=== PATIENT | female | born 1975 | race Caucasian/White ===

== ENCOUNTER 2019-10-10 19:28 | Emergency (ER) | payer OTHER ==
[~2019-10-10] VITALS: Ht 165.1 cm; Wt 56.7 kg
[2019-10-10] MEDS ORDERED: KETOROLAC TROMETHAMINE INJ 30 MG/ML VIAL IV ONE (20:00)
[2019-10-10] MEDS ORDERED: IV NS 0.9% 1,000 ML BAG IV ONE (20:00)
[2019-10-10] MEDS ORDERED: ACETAMINOPHEN ES 500 MG TABLET PO ONE (20:00)
[2019-10-10] MEDS ORDERED: ACETAMINOPHEN ES 500 MG TABLET ONE (20:06)
[2019-10-10] MEDS ORDERED: KETOROLAC TROMETHAMINE 15 MG/ML VIAL ONE (20:06)
--- NOTE | 2019-10-10 20:08 | NUR ---
XRAY AT BEDSIDE
--- NOTE | 2019-10-10 20:11 | NUR ---
URINE COLLECTED AND SENT TO LAB
--- NOTE | 2019-10-10 20:12 | NUR ---
PATIENT CAME TO ER BED 9 C/O LOWER BACK PAIN SINCE THIS MORNING. PATIENT STATES THAT SHE HAS FREQUENT URINATION THROUGHOUT THE DAY. AAOX4. BREATHING EVENLY AND UNLABORED ON ROOM AIR. CONNECTED TO MONITOR.
[2019-10-10 20:18] LABS: BASOPHILS # (AUTO) 0.1 /CMM (0.0-0.2); BASOPHILS % (AUTO) 1.1 % (0.0-2.0); EOSINOPHILS % (AUTO) 1.8 % (0.0-6.0); HEMATOCRIT 36 % (33-45); HEMOGLOBIN 12.3 g/dL (11.5-14.8); LYMPHOCYTES # (AUTO) 2.1 /CMM (0.8-4.8); LYMPHOCYTES % (AUTO) 30.5 % (20.0-44.0); MEAN CORPUSCULAR HGB CONC 34 g/dl (31.0-36.0); MEAN CORPUSCULAR VOLUME 93 fL (82-100); MONOCYTES # (AUTO) 0.4 /CMM (0.1-1.30); MONOCYTES % (AUTO) 6.4 % (2.0-12.0); NEUTROPHILS # (AUTO) 4.2 /CMM (1.8-8.9); NEUTROPHILS % (AUTO) 60.2 % (43.0-81.0); PLATELET COUNT (AUTO) 223 /CMM (150-450); RED BLOOD CELL COUNT(AUTO) 3.84 MIL/uL (4.0-5.2)
[2019-10-10 20:26] LABS: APPEARANCE,URINE Clear (CLEAR); BILIRUBIN,URINE Negative (NEGATIVE); BLOOD, URINE Small Ery/uL (NEGATIVE); COLOR,URINE Yellow (YELLOW); KETONES,URINE 15 (NEGATIVE); LEUKOCYTE ESTERASE ,URINE Negative (NEGATIVE); NITRITE, URINE Negative (NEGATIVE); PH,URINE 6.5 (5.0-8.0); PROTEIN,URINE Negative (NEGATIVE); UGLUCOSE Negative (NEGATIVE); UROBILINOGEN,URINE 0.2 EU/dL (0.2)
[2019-10-10 20:28] LABS: CALCIUM, SERUM 8.7 mg/dL (8.5-10.1); CREATININE 0.8 mg/dL (0.6-1.3); POTASSIUM 3.2 mmol/L (3.5-5.1)
[2019-10-10 20:29] LABS: BACTERIA,URINE None seen /HPF (None Seen); SQUAMOUS EPITHELIAL CELL,UR Few /HPF (None Seen); WBC,URINE 0-2 /HPF (0-3)
[2019-10-10 20:34] LABS: ALBUMIN 3.9 g/dL (3.4-5.0); BILIRUBIN,DIRECT 0.1 mg/dL (0.0-0.2); BILIRUBIN,TOTAL 0.4 mg/dL (0.2-1.0)
--- NOTE | 2019-10-10 21:01 | NUR ---
PT BROUGHT TO CT
--- NOTE | 2019-10-10 21:09 | NUR ---
BACK FROM CT
[2019-10-10] MEDS ORDERED: LORAZEPAM INJ 2 MG/ML VIAL IV ONE (22:00)
[2019-10-10] MEDS ORDERED: LORAZEPAM INJ 2 MG/ML VIAL ONE (22:00)
--- NOTE | 2019-10-10 23:01 | NUR ---
US AT BEDSIDE
--- NOTE | 2019-10-11 01:07 | NUR ---
Patient is resting comfortably in bed. Easily aroused. VSS.
--- NOTE | 2019-10-11 01:54 | NUR ---
Patient discharged to home in stable condition. Written and verbal after care instructions given. Patient verbalizes understanding of instruction and RX. IV removed. Catheter intact and site benign. Pressure and 4x4 applied to site. No bleeding noted.
[2019-10-11 01:55] VITALS: BP 112/68
== END 2019-10-11 01:55 | disposition home or self-care (01) ==
LOC: ER 19:30
DX: R10.9 Unspecified abdominal pain (principal); M41.9 Scoliosis, unspecified; N28.89 Other specified disorders of kidney and ureter; R31.9 Hematuria, unspecified; E87.6 Hypokalemia; Z88.0 Allergy status to penicillin
CPT/HCPCS: 36415; 71045; 74176; 76770; 80048; 80076; 81001; 83690; 84703; 85025; 96374; 96375; 99285; J1885; J2060; J7030 ×2; 81000-TC

== ENCOUNTER 2019-10-14 20:15 | Emergency (ER) | payer OTHER ==
[~2019-10-14] VITALS: Ht 165.1 cm; Wt 56.7 kg
--- NOTE | 2019-10-14 21:12 | NUR ---
PATIENT CAME TO ER BED 9 C/O SHORTNESS OF BREATH. PATIENT STATES THAT IT HAS BEEN DIFFICULT TO TAKE A FULL BREATH OF AIR PROBABLY BECAUSE OF THE MASS. PATIENT STATES THAT SHE HAS AN APPOINTMENT THIS COMING SATURDAY (October) WITH PRIMARY CARE DOCTOR. AAOX4. BREATHING EVENLY AND UNLABORED ON ROOM AIR. CONNECTED TO MONITOR.
[2019-10-14] MEDS ORDERED: MORPHINE SULFATE INJ 4 MG/ML DISP.SYRIN ONE (21:15)
[2019-10-14] MEDS ORDERED: ONDANSETRON HCL/PF 4 MG/2 ML VIAL ONE (21:15)
[2019-10-14 21:18] LABS: BASOPHILS # (AUTO) 0.1 /CMM (0.0-0.2); BASOPHILS % (AUTO) 1.3 % (0.0-2.0); EOSINOPHILS % (AUTO) 2.2 % (0.0-6.0); HEMATOCRIT 39 % (33-45); HEMOGLOBIN 13.3 g/dL (11.5-14.8); LYMPHOCYTES # (AUTO) 2.4 /CMM (0.8-4.8); LYMPHOCYTES % (AUTO) 36.6 % (20.0-44.0); MEAN CORPUSCULAR HGB CONC 34 g/dl (31.0-36.0); MEAN CORPUSCULAR VOLUME 95 fL (82-100); MONOCYTES # (AUTO) 0.5 /CMM (0.1-1.30); MONOCYTES % (AUTO) 7.4 % (2.0-12.0); NEUTROPHILS # (AUTO) 3.5 /CMM (1.8-8.9); NEUTROPHILS % (AUTO) 52.5 % (43.0-81.0); PLATELET COUNT (AUTO) 257 /CMM (150-450); RED BLOOD CELL COUNT(AUTO) 4.15 MIL/uL (4.0-5.2); WHITE BLOOD COUNT (AUTO) 6.6 K/uL (4.3-11.0)
--- NOTE | 2019-10-14 21:18 | NUR ---
BLOOD COLLECTED AND SENT TO LAB
[2019-10-14 21:29] LABS: CALCIUM, SERUM 9.1 mg/dL (8.5-10.1); CARBON DIOXIDE 22 mmol/L (21-32); CHLORIDE 101 mmol/L (98-107); CREATININE 0.9 mg/dL (0.6-1.3); GLUCOSE 96 mg/dL (74-106); POTASSIUM 3.1 mmol/L (3.5-5.1); SODIUM SERUM 136 mmol/L (136-145); UREA NITROGEN, BLOOD 11 mg/dL (7-18)
[2019-10-14] MEDS ORDERED: IV NS 0.9% 1,000 ML BAG IV ONE (21:30)
[2019-10-14] MEDS ORDERED: ONDANSETRON HCL/PF 4 MG/2 ML VIAL IVP ONE (21:30)
[2019-10-14] MEDS ORDERED: MORPHINE SULFATE INJ 2 MG/ML DISP.SYRIN IV ONE (21:30)
[2019-10-14 21:35] LABS: ALANINE AMINOTRANSFERASE 25 U/L (12-78); ALBUMIN 4.3 g/dL (3.4-5.0); ALKALINE PHOSPHATASE 66 U/L (46-116); ASPARTATE AMINOTRANSFERASE 32 U/L (15-37); BILIRUBIN,DIRECT 0.1 mg/dL (0.0-0.2); BILIRUBIN,TOTAL 0.4 mg/dL (0.2-1.0); LIPASE 137 U/L (73-393); TOTAL PROTEIN, SERUM 7.7 g/dL (6.4-8.2)
--- NOTE | 2019-10-14 22:22 | NUR ---
URINE COLLECTED AND SENT TO LAB.
[2019-10-14 22:27] LABS: APPEARANCE,URINE Clear (CLEAR); BILIRUBIN,URINE Negative (NEGATIVE); BLOOD, URINE Moderate Ery/uL (NEGATIVE); COLOR,URINE Yellow (YELLOW); KETONES,URINE 15 (NEGATIVE); LEUKOCYTE ESTERASE ,URINE Negative (NEGATIVE); NITRITE, URINE Negative (NEGATIVE); PH,URINE 5.5 (5.0-8.0); PROTEIN,URINE Negative (NEGATIVE); UGLUCOSE Negative (NEGATIVE); UROBILINOGEN,URINE 0.2 EU/dL (0.2)
--- NOTE | 2019-10-14 22:38 | NUR ---
CALLED RADIOLOGY TO PICK PATIENT UP.
--- NOTE | 2019-10-14 22:46 | NUR ---
PATIENT TAKEN TO CT VIA GURNEY.
[2019-10-14] MEDS ORDERED: IOHEXOL-350 100 ML VIAL IV ONE (22:49)
[2019-10-14] MEDS ORDERED: CT SWABBABLE VALVE TRANS SET 1 EA INFUS.SET MC ONE (22:49)
[2019-10-14] MEDS ORDERED: IV NS 0.9% 250 ML IV ONE (22:49)
[2019-10-14 23:18] LABS: BACTERIA,URINE Few /HPF (None Seen); SQUAMOUS EPITHELIAL CELL,UR Few /HPF (None Seen); WBC,URINE 0-2 /HPF (0-3)
--- NOTE | 2019-10-14 23:48 | NUR ---
IV removed. Catheter intact and site benign. Pressure and 4x4 applied to site. No bleeding noted. Patient discharged to home in stable condition. Written and verbal after care instructions given. Patient verbalizes understanding of instruction.
--- NOTE | 2019-10-14 23:50 | NUR ---
Prescription provided to patient and explained not to operate behind machinery.
--- NOTE | 2019-10-14 23:50 | NUR ---
Patient is ambulatory with a steady gait.
[2019-10-14 23:51] VITALS: BP 121/71
== END 2019-10-14 23:51 | disposition home or self-care (01) ==
LOC: ER 20:15
DX: F41.9 Anxiety disorder, unspecified (principal); Z88.0 Allergy status to penicillin
CPT/HCPCS: 36415; 71045; 71275; 80048; 80076; 81001; 83690; 84484; 84703; 85025; 96374; 96375; 99285; J2270; J2405; J7030; J7050; Q9967; 81000-TC

== ENCOUNTER 2024-01-12 04:21 | Emergency (ER) | payer OTHER ==
[~2024-01-12] VITALS: Ht 167.6 cm; Wt 61.2 kg
[2024-01-12 04:42] VITALS: BP 125/81; TEMP 98.2; O2SAT 99
== END 2024-01-12 05:56 | disposition home or self-care (01) ==
LOC: ER 04:25
DX: F41.9 Anxiety disorder, unspecified (principal); Z88.0 Allergy status to penicillin
CPT/HCPCS: 71045-TC